=== PATIENT | male | born 1975 | race Caucasian/White ===

== ENCOUNTER 2017-11-03 22:52 | Emergency (ER) | payer SELFPAY ==
[~2017-11-03] VITALS: Ht 190.5 cm; Wt 125.6 kg
[2017-11-03 23:08] VITALS: Ht 190.5 cm; Wt 125.6 kg
[2017-11-03 23:48] VITALS: BP 121/83
== END 2017-11-03 23:48 | disposition home or self-care (01) ==
LOC: ED 22:52
DX: H66.91 Otitis media, unspecified, right ear (principal); H60.91 Unspecified otitis externa, right ear

== ENCOUNTER 2018-10-29 22:16 | Emergency (ER) | payer SELFPAY ==
[~2018-10-29] VITALS: Ht 190.5 cm; Wt 126.1 kg
[2018-10-29 22:49] VITALS: BP 127/76; Ht 190.5 cm; Wt 126.1 kg
== END 2018-10-30 01:32 | disposition home or self-care (01) ==
LOC: ED 22:16
DX: J20.8 Acute bronchitis due to other specified organisms (principal)
CPT/HCPCS: J7512

== ENCOUNTER 2019-08-02 21:12 | Emergency (ER) | payer SELFPAY ==
[~2019-08-02] VITALS: Ht 185.4 cm; Wt 131.1 kg
[2019-08-02 21:21] VITALS: Ht 185.4 cm; Wt 131.1 kg
[2019-08-02 22:04] VITALS: BP 122/78
== END 2019-08-02 22:04 | disposition home or self-care (01) ==
LOC: ED 21:12
DX: R05 Cough (principal); R51 Headache
CPT/HCPCS: J7512; Q0092